=== PATIENT | male | born 1990 | race African-American/Black ===

== ENCOUNTER 2018-12-05 19:58 | Emergency (ER) | payer OTHER ==
[~2018-12-05] VITALS: Ht 170.2 cm; Wt 77.3 kg
[2018-12-05] MEDS ORDERED: MORPHINE 2 MG/ML 1ML VIAL (J2270) IV ONE (20:45)
[2018-12-05 21:03] LABS: BASO % 0.4 % (0.0-1.0); EOS % 0.1 % (0.0-3.0); HEMATOCRIT 44.4 % (42.0-52.0); HEMOGLOBIN 15.4 g/dl (13.5-17.5); LYMPH # 1.6 10^3/uL (1.5-5.0); LYMPH % 17.8 % (24.0-44.0); MEAN CORPUSCULAR HEMOGLOBIN 29.8 pg (27.0-33.0); MEAN CORPUSCULAR HGB CONC 34.7 g/dl (32.0-36.5); MEAN CORPUSCULAR VOLUME 85.9 fl (80.0-96.0); MONO # 0.8 10^3/uL (0.0-0.8); MONO % 8.3 % (0.0-5.0); NEUTROPHILS # 6.6 10^3/uL (1.5-8.5); NEUTROPHILS % 73.2 % (36.0-66.0); PLATELET COUNT, AUTOMATED 191 10^3/uL (150-450); RED BLOOD COUNT 5.17 10^6/uL (4.30-6.10); WHITE BLOOD COUNT 9.1 10^3/uL (4.0-10.0)
[2018-12-05 21:13] LABS: INR 1.13; PROTHROMBIN TIME 14.2 SECONDS (11.8-14.0)
[2018-12-05 21:14] LABS: PARTIAL THROMBOPLASTIN TIME 23.2 SECONDS (25.0-38.4)
[2018-12-05 21:34] LABS: BLOOD UREA NITROGEN 13 MG/DL (7-18); CALCIUM LEVEL 9.4 MG/DL (8.5-10.1); CARBON DIOXIDE LEVEL 28 MEQ/L (21-32); CHLORIDE LEVEL 106 MEQ/L (98-107); CREATININE FOR GFR 1.15 MG/DL (0.70-1.30); GLOMERULAR FILTRATION RATE > 60.0 (>60); GLUCOSE, FASTING 99 MG/DL (70-100); POTASSIUM SERUM 4.3 MEQ/L (3.5-5.1); SODIUM LEVEL 139 MEQ/L (136-145)
[2018-12-05] MEDS ORDERED: ISOVUE-370 76% 100ML VIAL (Q9967) As Ordered ONE (21:57)
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
[2018-12-05] MEDS ORDERED: DERMABOND TOPICAL SKIN ADHESIVE TOP ONE (23:00)
[2018-12-05] MEDS ORDERED: AUGMENTIN 875 MG TAB PO ONE (23:15)
[2018-12-05] MEDS ORDERED: MORPHINE 4 MG/ML 1ML VIAL/SYRINGE (J2270) IV ONE (23:15)
[2018-12-05] MEDS ORDERED: AUGM500T34 PO (23:28)
[2018-12-05 23:34] VITALS: BP 146/65
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
== END 2018-12-05 23:47 | disposition home or self-care (01) ==
LOC: M ED 19:58
DX: S41.031A Puncture wound without foreign body of right shoulder, initial encounter (principal); S21.131A Puncture wound without foreign body of right front wall of thorax without penetration into thoracic cavity, initial encounter; S01.81XA Laceration without foreign body of other part of head, initial encounter; W26.8XXA Contact with other sharp object(s), not elsewhere classified, initial encounter; Y92.148 Other place in prison as the place of occurrence of the external cause; Z91.018 Allergy to other foods
CPT/HCPCS: 12011; 71260; 73060; 80048; 85025; 85610; 85730; 96374; 96376; 99284; J2270; Q9967